=== PATIENT | male | born 1990 | race Two or more races ===

== ENCOUNTER 2017-03-06 14:40 | Outpatient (CLI) | payer BC ==
[2017-03-06 15:34] LABS: BASOPHILS % (AUTO) 0.3 % (0.0-2.0); EOSINOPHILS # (AUTO) 0.1 /CMM (0.0-0.7); EOSINOPHILS % (AUTO) 1.6 % (0.0-6.0); HEMATOCRIT 45 % (39-51); HEMOGLOBIN 15.6 g/dL (13.5-17.5); LYMPHOCYTES % (AUTO) 29.1 % (20.0-44.0); MEAN CORPUSCULAR HEMOGLOBIN 31 PG (26.0-33.0); MEAN CORPUSCULAR HGB CONC 35 g/dl (31.0-36.0); MEAN CORPUSCULAR VOLUME 89 fL (80-96); MONOCYTES # (AUTO) 0.7 /CMM (0.1-1.30); NEUTROPHILS # (AUTO) 3.9 /CMM (1.8-8.9); PLATELET COUNT (AUTO) 222 /CMM (150-450); RDW COEFFICIENT OF VARIATION 13.1 (11.5-15.0); RED BLOOD CELL COUNT(AUTO) 5.06 MIL/uL (4.5-6.0); WHITE BLOOD COUNT (AUTO) 6.7 K/uL (4.3-11.0)
[2017-03-06 15:49] LABS: ALBUMIN 4.1 g/dL (3.4-5.0); BILIRUBIN,TOTAL 2.1 mg/dL (0.2-1.0); CALCIUM, SERUM 8.6 mg/dL (8.5-10.1); CREATININE 0.8 mg/dL (0.6-1.3); MAGNESIUM 1.8 mg/dL (1.8-2.4); POTASSIUM 3.9 mmol/L (3.5-5.1)
[2017-03-06 15:57] LABS: T4 (THYROXINE) 6.3 ug/dL (4.7-13.3); THYROID STIMULATING HORMONE 2.618 uIU/mL (0.358-3.74)
[2017-03-07 08:58] LABS: T3 TOTAL 126 ng/dL (71-180)
[2017-03-07 10:30] LABS: IMMUNOGLOBULIN E,TOTAL 233 IU/mL (0-100); VIT D, 25-HYDROXY 12.3 ng/mL (30.0-100.0)
[2017-03-07 12:36] LABS: H. PYLORI AB IgA <9.0 units (0.0-8.9)
== END 2017-03-06 23:59 | disposition home or self-care (01) ==
LOC: LAB 14:40
PROVIDERS: ATTEND Family Medicine
DX: E55.9 Vitamin D deficiency, unspecified (principal); R19.7 Diarrhea, unspecified
CPT/HCPCS: 36415; 80053-TC; 80061-TC; 82306; 82785; 83735-TC; 84436-TC; 84439-TC; 84443-TC; 84480; 85025-TC; 86003; 86677

== ENCOUNTER 2017-03-21 13:58 | Outpatient (CLI) | payer BC | END 2017-03-21 23:59 | disposition home or self-care (01) | LOC: LAB 13:58 | PROVIDERS: ATTEND Family Medicine | DX: K52.9 Noninfective gastroenteritis and colitis, unspecified (principal) | CPT/HCPCS: 87045-TC; 89055 ==